=== PATIENT | male | born 1960 | race Hispanic/Latino ===

== ENCOUNTER 2018-05-05 01:22 | Emergency (ER) | payer MEDICAID ==
[2018-05-05 01:22] VITALS: BMI 29.8
[2018-05-05 01:34] VITALS: O2SAT 97
--- NOTE | 2018-05-05 01:41 | C.PDOC ---
History Of Present Illness 58 year old male DOMINGO, presents to ED for alcohol intoxication at home. Patients girlfriend was concerned which prompted her to call EMS. Patient claims to have right-sided chest pain that is digitally reproducible. Otherwise he denies trauma, SOB, dizziness, nausea, vomiting, abdominal pain, or weakness. Patient is frequently intoxicated at home. Time Seen by Provider: 05/05/18 01:37 Chief Complaint (Nursing): Substance Abuse History Per: Patient History/Exam Limitations: no limitations Onset/Duration Of Symptoms: Hrs Current Symptoms Are (Timing): Still Present Past Medical History Reviewed: Historical Data, Nursing Documentation, Vital Signs Vital Signs: Last Vital Signs Temp 98.1 F 05/05/18 01:28 Pulse 114 H 05/05/18 01:28 Resp 20 05/05/18 01:28 BP 131/74 05/05/18 01:28 Pulse Ox 97 05/05/18 01:28 - Medical History PMH: Back Problems, Diabetes, HTN - [facility] Procedures ALCOHOL DETOXIFICATION (12/14/12) Family History: States: No Known Family Hx - Social History Hx Tobacco Use: Yes Hx Alcohol Use: Yes Hx Substance Use: Yes - Immunization History Hx Tetanus Toxoid Vaccination: No Hx Influenza Vaccination: No Hx Pneumococcal Vaccination: No Review Of Systems Except As Marked, All Systems Reviewed And Found Negative. Constitutional: Negative for: Fever, Chills Cardiovascular: Positive for: Chest Pain (R sided) Respiratory: Negative for: Shortness of Breath Gastrointestinal: Negative for: Nausea, Vomiting, Abdominal Pain, Diarrhea Neurological: Negative for: Weakness, Numbness, Dizziness Physical Exam - Physical Exam Appears: Non-toxic, No Acute Distress, Other (Intoxicated; alcohol on breath) Skin: Warm, Dry Head: Atraumatic, Normacephalic Eye(s): bilateral: Normal Inspection Oral Mucosa: Moist Chest: Symmetrical, Other (Digitally reproducible in R parasternal border) Cardiovascular: Rhythm Regular, No Murmur Respiratory: Normal Breath Sounds, No Rales, No Rhonchi, No Wheezing Gastrointestinal/Abdominal: Soft, No Tenderness Neurological/Psych: Oriented x3, Normal Speech Gait: Unsteady ED Course And Treatment O2 Sat by Pulse Oximetry: 97 (RA) Pulse Ox Interpretation: Normal Medical Decision Making Medical Decision Making: Impression: Chest pain Plan: --EKG --Labs --Chest X-Ray --Urinalysis persistent alcohol abuse, no acute injuries + mild costochondritis R parasternal boarder, no rash sisters @ bedside request defer w/u beyond normal EKG and will take pt safely home. Disposition Doctor Will See Patient In The: Office Counseled Patient/Family Regarding: Studies Performed, Diagnosis - Disposition Referrals: [facility] [Outside] [facility] [Outside] [facility] [Outside] [facility] [Outside] [facility] [Outside] Disposition: HOME/ ROUTINE Disposition Time: 01:54 Condition: GOOD Additional Instructions: if pain @ chest/sternal area is digitally reproducable, then it is probably NOT cardiac in nature Seek AA and psych services for your alcoholism Instructions: Alcohol Use - When Is Drinking a Problem?, Costochondritis Forms: [facility] ([facility] ([place]) - Clinical Impression Clinical Impression: Alcohol abuse, Chest wall discomfort - Scribe Statement The provider has reviewed the documentation as recorded by the Niribchris Andersen Provider Attestation: All medical record entries made by the Niribe were at my direction and personally dictated by me. I have reviewed the chart and agree that the record accurately reflects my personal performance of the history, physical exam, medical decision making, and the department course for this patient. I have also personally directed, reviewed, and agree with the discharge instructions and disposition.
[2018-05-05 02:38] VITALS: BP 108/63; PULSE 102; RESP 16; TEMP 98.3
--- NOTE | 2018-05-06 18:44 | CARD ---
APPROVED REPORT Date of service: 05/05/2018 EKG Measurement Heart [id number] <Conclusion> Sinus tachycardia Otherwise normal ECG
== END 2018-05-05 02:00 | disposition home or self-care (01) ==
LOC: C.ER 01:22
DX: F10.10 Alcohol abuse, uncomplicated (principal); R07.89 Other chest pain; I10 Essential (primary) hypertension; E11.9 Type 2 diabetes mellitus without complications; F17.210 Nicotine dependence, cigarettes, uncomplicated